=== PATIENT | female | born 1970 | race Caucasian/White ===

== ENCOUNTER 2020-04-20 18:25 | Emergency (ER) | payer OTHER ==
--- OUTSIDE RECORDS SUMMARY | 2020-04-20 18:26 | XMS REPORT | Continuity of Care Document ---
:1970 Author Organization [facility] t Address [address] [place] [address] Care Team Providers Name Role Phone StephanieTonyartemkayleigh CAMEJO Attending Clinician Problems This patient has no known problems. Allergies, Adverse Reactions, Alerts This patient has no known allergies or adverse reactions. Medications This patient has no known medications. Procedures This patient has no known procedures. Encounters Start End Encounter Admission Attending Care Care Encounter Source Date/Time Date/Time Type Type Clinicians Facility Department ID 2020-03-21 2020-03-21 [facility] [id number] 10:29:25 23:59:00 Encounter donato, SPECIALTY [id number] [facility] [id number] CENTER AT [phone] KINGA [address] [place] [address] 2020-02-28 2020-02-28 Office [facility] [id number] 08:51:28 10:53:25 Visit donato, SPECIALTY [id number] [facility] [id number] CENTER AT [phone] [address] Results This patient has no known results.
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
--- OUTSIDE RECORDS SUMMARY | 2020-04-20 18:27 | XMS REPORT | Summary of Care ---
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 distal end of right [facility] [place] tibia with nonunion, [address], [phone] subsequent encounter [address] (Primary Dx) [place] [address] [phone] Allergies Active Allergy Reactions Severity Noted Date Comments Hydrocodone-Acetaminophen Hives Medium 06/12/2017 documented as of this encounter (statuses as of 02/23/2020) Medications Medication Sig Dispensed Refills Start Date [...] as of this encounter (statuses as of 02/23/2020) Active Problems Problem Noted Date Morbid obesity [...] Added automatically from request for [place] [id number] documented as of this encounter (statuses as of 02/23/2020) Immunizations Name Administration Dates Next Due Td 06/12/2017 documented as of this encounter Social History Tobacco Use Types Packs/Day Years Used Date Never Smoker Smokeless Tobacco: Never Used Alcohol Use Drinks/Week oz/Week Comments No Sex Assigned at Date Recorded Not on file COVID-19 Exposure Response Date Recorded In the last month, have you been in contact with No / Unsure 02/22/2020 6:18 PM CDT someone who was confirmed or suspected to have Coronavirus / COVID-19? documented as of this encounter Last Filed Vital Signs Not on filedocumented in this encounter Plan of Treatment Date Type Specialty Care Team Description 02/23/2020 Office Visit Orthopedic Surgery Raj Clarke II, MD [address] [place], [place] [address] [phone] 02/28/2020 Office Visit Orthopedic Surgery CedrickJatinderTonyCurt hough, SOUND INSTALLATION WORKER [address] [place] [address] [phone] Name Type Priority Associated Diagnoses Order S chedule XR TIBIA FIBULA 2 VW IMAGING Routine Other type I or II o pen Expected: 02/23/2020, RIGHT fracture of distal end of Ex holly: 02/22/2021 right tibia with nonunion, subsequent encounter Health Maintenance Due Date Last Done Comments [...] of this encounter Implants Implanted Type Area Analytic Programmer Device Shelf Model / Identifier Expiration Serial / Date Lot Ivc Filter Kia Femoral Us Bard #[id number] - S0 FILTER N/A: Abdome n Bard 01/23/2020 [id number] / Implanted: Qty: 1 on 06/24/2017 by Luigi Velázquez Jr., MD at [facility] 0 / [id number] Nail Synthes 11mm Ti Blaine Retro/Antegrade Femoral-Ex/315mm # [id number] NAIL Right: Leg Synthes 09/11/2021 [id number] / Implanted: Qty: 1 on 06/13/2017 by Adria Sims MD at [facility] 0000 / [id number] Screw, Synthes 5.0mm Ti Lckng W/T25 Star 32mm #[id number] - S0000 SCREW Right: Leg Synthes 10/22/2025 [id number] / Implanted: Qty: 1 on 06/13/2017 by Adria Sims MD at [facility] 0000 / [id number] Screw, Synthes 5.0mm Ti Lckng W/T25 Star 34mm #[id number] - S0000 SCREW Right: Leg Synthes 12/22/2025 [id number] / Implanted: Qty: 1 on 06/13/2017 by Adria Sims MD at [facility] 0000 / [id number] Screw, Synthes 5.0mm Ti Lckng W/T25 Star 38mm Sterile #[id number] - S0000 SCREW Right: Leg Synthes 02/21/2026 04.005.528S / Implanted: Qty: 1 on 06/13/2017 by Adria Sims MD at [facility] 0000 / [id number] Screw, Synthes 5.0mm Ti Lckng W/T25 Star 42mm #[id number] - S0000 SCREW Right: Leg Synthes 06/24/2025 [id number] / Implanted: Qty: 1 on 06/13/2017 by Adria Sims MD at [facility] 0000 / [id number] documented as of this encounter Results Not on filedocumented in this encounter Visit Diagnoses Diagnosis Other type I or II open fracture of dist al end of right tibia with nonunion, subsequent encounter - Primary documented in this encounter Insurance Payer Benefit Plan / Subscriber ID Effective Dates Phone Addre ss Type Group U S DEPT OF [place] DEPT OF LABOR [id number] 2017-Present [facility] [employer] AETNA AETNA HMO [id number] 2017-Present HM O documented as of this encounter
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
--- OUTSIDE RECORDS SUMMARY | 2020-04-20 18:27 | XMS REPORT | Summary of Care ---
:1970 Author Organization [facility] Address [address] [place] [address] Care Team Providers Name Role Phone Shey Barbosa Primary Care Provider Reason for Visit Reason Comments Follow-up Right Leg Encounter Details Date Type Department Care Team Description 02/23/2020 Office Visit [facility] Adria Clarke MD Pain (Primary Dx) Orthopaedic Surgery- [address] [place] [address] Dr. Carvajal [address] [facility] [address], [address] [place] [address] [address] [place] [id number] Allergies Active Allergy Reactions Severity Noted Date Comments Hydrocodone-Acetaminophen Hives Medium 06/12/2017 documented as of this encounter (statuses as of 02/27/2020) Medications Medication Sig Dispensed Refills Start Date [...] as of this encounter (statuses as of 02/27/2020) Active Problems Problem Noted Date Morbid obesity [...] Overview: Added automatically from request for gray angulo [id number] documented as of this encounter (statuses as of 02/27/2020) Immunizations Name Administration Dates Next Due Td 06/12/2017 documented as of this encounter Social History Tobacco Use Types Packs/Day Years Used Date Never Smoker Smokeless Tobacco: Never Used Alcohol Use Drinks/Week oz/Week Comments No Sex Assigned at Date Recorded Not on file COVID-19 Exposure Response Date Recorded In the last month, have you been in contact with No / Unsure 02/27/2020 1:06 PM CDT someone who was confirmed or suspected to have Coronavirus / COVID-19? documented as of this encounter Last Filed Vital Signs Vital Sign Reading Time Taken Comments Blood Pressure - - Pulse - - Temperature 36.3 C (97.3 F) 02/23/2020 10:37 AM CDT Respiratory Rate - - Oxygen Saturation - - Inhaled Oxygen Concentration - - Weight 112.4 kg (247 lb 14.4 oz) 02/23/2020 10:37 AM CDT Height - - Body Mass Index 41.25 02/08/2020 11:17 AM CDT documented in this encounter Progress Notes Adria Clarke II, MD - 02[facility]23/2020 10:[facility] 02/24/2019 HPI 02/15/2018 S: Izzy Jose isdoing well. No pain in her leg today and only hurts a 2/10 when she walks far. She is having back pain from previous compression fracture, no radiation of pain or numbness/tingling to the arms or legs. No problems with bowel or bladder. HPI 05/27/2018 S: Izzy Jose is doing well back fully at work however reports aching pain at the lateral aspect of her leg at the end of the day. Interval history 02/24/2019 No significant changes. No problems. Patient wanted to see if bone is growing. Patient interested indiscussing progression, risk/benefits of surgery. Mild pain/irritation lateral lower right leg. Incision well healed, no signs of infection. Patient able to complete ADL's, no major barriers to daily life. Pain throughout day, no worse at end of day. Interval history 02/23/2020 No significant changes. No problems. Still has mild pain/irritation lateral lower right leg 06/03. Incision well healed Patient able to ambulate with no pain. Patient doesn't want any operative treatment at this time. Physical Exam: Gen: NAD RLE: incisions are c/d/i on the right leg. SILT sural/saphenous/tibial/sP/DP nerves, bilaterally, no clonus, 2+ PT/DP pulses. 5/5 EHL ankle plantar/dorsi flexion X rays show interval healing. Nail and screws in place A/P: Izzy Jose is a 50 year old female with s/p R Tibial IMN. Tibia shows improvement, healing since last visit. Weight Bearing: WBAT RLE Pain control: Tylenol PRN F/u in 2 years Disposition: Discussed possible screw removal/replacement options/risk/benefits. Patient is not interested in any operative treatment at this time. I performed a history and physical examination of the patient and discussed the patient's managementwith the resident. I reviewed the resident's note and agree with the documented findings and plan of care. Adria Clarke II, M.D. Pasteurizing Machine Operator Orthopaedic Trauma Blending Tank Tender Helper Orthopaedic Surgery Pager: 02/27/2020 7:09 PM Reina Richards MA - 02/23/2020 10:00 AM Didi Trice Jose is a 50 year old female comes to clinic independent in ambulation for follow up of right leg. Pt comes alone. No acute distress with pain reported 06/03. Pt preferred language is Luxembourger. Pt. denies fall in last 12 months. Allergies and medications were reviewed. documented in this encounter Plan of Treatment Date Type Specialty Care Team Description 02/28/2020 Office Visit Orthopedic Surgery Curt Kent, BASHIR [address] [place] [address] [phone] 03/08/2020 Appointment Radiology Curt Hahn FNP [address] [place] [address] [phone] Health Maintenance Due Date Last Done Comments [...] of this encounter Implants Implanted Type Area Dice Person Device Shelf Model / Identifier Expiration Serial / Date Lot Ivc Filter [place] Femoral Us Bard #[id number] - S0 FILTER N/A: Abdome n Bard 01/23/2020 [id number] / Implanted: Qty: 1 on 06/24/2017 by Luigi Velázquez Jr., MD at [facility] 0 / [id number] Nail Synthes 11mm Ti Blaine Retro/Antegrade Femoral-Ex/315mm # [id number] NAIL Right: Leg Synthes 09/11/2021 04.034.543S / Implanted: Qty: 1 on 06/13/2017 by Adria Sims MD at [facility] 0000 / [id number] Screw, Synthes 5.0mm Ti Lckng W/T25 Star 32mm #[id number] - S0000 SCREW Right: Leg Synthes 10/22/2025 04.005.522S / Implanted: Qty: 1 on 06/13/2017 by Adria Sims MD at [facility] 0000 / [id number] Screw, Synthes 5.0mm Ti Lckng W/T25 Star 34mm #[id number] - S0000 SCREW Right: Leg Synthes 12/22/2025 04.005.524 / Implanted: Qty: 1 on 06/13/2017 by Adria Sims MD at [facility] 0000 / [id number] Screw, Synthes 5.0mm Ti Lckng W/T25 Star 38mm Sterile #[id number] - S0000 SCREW Right: Leg Synthes 02/21/2026 04.005.528S / Implanted: Qty: 1 on 06/13/2017 by Adria Sims MD at [facility] 0000 / [id number] Screw, Synthes 5.0mm Ti Lckng W/T25 Star 42mm #[id number] - S0000 SCREW Right: Leg Synthes 06/24/2025 04.005.532S / Implanted: Qty: 1 on 06/13/2017 by Adria Sims MD at [facility] 0000 / [id number] documented as of this encounter Results Not on filedocumented in this encounter Visit Diagnoses Diagnosis Pain - Primary Generalized pain documented in this encounter Insurance Payer Benefit Plan / Subscriber ID Effective Dates Phone Addre ss Type Group U S DEPT OF [place] S DEPT OF LABOR [id number] 2017-Present I LABOR documented as of this encounter
--- OUTSIDE RECORDS SUMMARY | 2020-04-20 18:27 | XMS REPORT | Summary of Care ---
:1970 Author Organization [facility] [employer] Address [address] [place] [address] Care Team Providers Name Role Phone Shey Barbosa Primary Care Provider Reason for Referral Radiology Services (Routine) Status Reason Specialty Diagnoses / Referred By Referred To Procedures Contact Contact New Request Diagnostic Diagnoses Compression fracture of T12 vertebra with routine healing, subsequent encounter Postmenopausal bone loss [facility] Radiology Procedures DEXA AXIAL (HIP AND SPINE) on, Shibi, PRECISION MACHINING INSTRUCTOR [address] [place] [address] Radiology Services (Routine) Status Reason Specialty Diagnoses / Referred By Referred To Procedures Contact Contact New Request Diagnostic Diagnoses Compression fracture of T12 vertebra with routine healing, subsequent encounter Postmenopausal bone loss [facility] Radiology Procedures DEXA PERIPHERAL (FOREARM) on, Shibi, PRECISION MACHINING INSTRUCTOR [address] [place] [address] Reason for Visit Reason Comments Back Pain Encounter Details Date Type Department Care Team Description 02/08/2020 Office Visit [facility] Cedrick-Kunjumon Postmenopa usal bone loss (Primary Dx); Orthopaedic Surgery- , Shibi, FN P Compression fracture of T12 vertebra wit h routine healing, subsequent encounter Kathleen [address] [facility] [address] [address] [place], [place] [phone] [phone] Allergies Active Allergy Reactions Severity Noted Date [...] Added automatically from request for gray adele [id number] documented as of this encounter (statuses as [...] file Gets together: Not on file Attends uatsdin service: Not on file Active member of [...] Orthopedic Surgery Raj Clarke II, MD [address] [place] [address] 555 [phone] Name Type Priority Associated Diagnoses Order S [...] of this encounter Implants Implanted Type Area Occupational Health Nurse Supervisor Device Shelf Model / Identifier Expiration Serial / Date Lot Ivc Filter [place] Femoral Bard #[id number] - S0 FILTER N/A: Abdome n Bard 01/23/2020 [id number] / Implanted: Qty: 1 on 06/24/2017 by Luigi Velázquez Jr., MD at [facility] 0 / [id number] Nail Synthes 11mm Ti Blaine Retro/Antegrade Femoral-Ex/315mm # [id number] NAIL Right: Leg Synthes 09/11/2021 04.034.543S / Implanted: Qty: 1 on 06/13/2017 by Adria Sims MD at [facility] 0000 / [id number] Screw, Synthes 5.0mm Ti Lckng W/T25 Star 32mm #[id number] - S0000 SCREW Right: Leg Synthes 10/22/2025 04.005.522S / Implanted: Qty: 1 on 06/13/2017 by Adria Sims MD at [facility] 0000 / [id number] Screw, Synthes 5.0mm Ti Lckng W/T25 Star 34mm #04.005.524 - S0000 SCREW Right: Leg Synthes 12/22/2025 04.005.524 / Implanted: Qty: 1 on 06/13/2017 by Adria Sims MD at [facility] 0000 / [id number] Screw, Synthes 5.0mm Ti Lckng W/T25 Star 38mm Sterile #[id number] - S0000 SCREW Right: Leg Synthes 02/21/2026 04.005.528S / Implanted: Qty: 1 on 06/13/2017 by Adria Sims MD at [facility] 0000 / [id number] Screw, Synthes 5.0mm Ti Lckng W/T25 Star 42mm #[id number] - S0000 SCREW Right: Leg Synthes 06/24/2025 04.005.532S / Implanted: Qty: 1 on 06/13/2017 by Adria Sims MD at [facility] 0000 / [id number] documented as of this encounter Results Not on filedocumented in this encounter Visit Diagnoses Diagnosis Postmenopausal bone loss - Primary Senile osteoporosis Compression fracture of T12 vertebra wit h routine healing, subsequent encounter documented in this encounter Insurance Payer Benefit Plan / Subscriber ID Effective Dates Phone Addre ss Type Group U S DEPT OF [facility] DEPT OF LABOR [id number] 2017-Present I LABOR 2020 adnaomie Carnes (Home) [place] [phone] [facility] (Work) [place] [id number] documented as of this encounter
--- OUTSIDE RECORDS SUMMARY | 2020-04-20 18:28 | XMS REPORT | Summary of Care ---
:1970 Author Organization [facility] [employer] [facility] Address [address] [place] [address] Care Team Providers Name Role Phone Familia, Shey Primary Care Provider Encounter Details Date Type Department Care Team Description 02/28/2020 Hospital Encounter [facility] Ortho Radiolo gy Shibi, LITIGATION EXAMINER [address] [facility] [address] [facility] [address] [place], [place] [phone] [facility] [phone] Allergies Active Allergy Reactions Severity Noted Date Comments Hydrocodone-Acetaminophen Hives Medium 06/12/2017 documented as of this encounter (statuses as of 02/29/2020) Medications Medication Sig Dispensed Refills Start Date [...] as of this encounter (statuses as of 02/29/2020) Active Problems Problem Noted Date Morbid obesity [...] Added automatically from request for gray angulo [id number] documented as of this encounter (statuses as of 02/29/2020) Immunizations Name Administration Dates Next Due Td 06/12/2017 documented as of this encounter Social History Tobacco Use Types Packs/Day Years Used Date Never Smoker Smokeless Tobacco: Never Used Alcohol Use Drinks/Week oz/Week Comments No Sex Assigned at Date Recorded Not on file COVID-19 Exposure Response Date Recorded In the last month, have you been in contact with No / Unsure 02/28/2020 8:52 AM CDT someone who was confirmed or suspected to have Coronavirus / COVID-19? documented as of this encounter Last Filed Vital Signs Not on filedocumented in this encounter Plan of Treatment Date Type Specialty Care Team Description 03/08/2020 Appointment Radiology Curt Hahn FNP [address] [place] [address] [phone] Name Type Priority Associated Diagnoses Date/Ti me XR SPINE THORACIC 2 VW IMAGING Routine Compression fractu re of 02/28/2020 10:15 AM T12 vertebra with CDT routine healing, subsequent encounter Name Type Priority Associated Diagnoses Order S chedule XR SPINE THORACIC 2 IMAGING Routine Compression fracture of ONCE for 1 Occurrences VW T12 vertebra with starting 1 routine healing, until 02/27 subsequent encounter Health Maintenance Due Date Last Done Comments DTaP,Tdap,and Td Vaccines (1 - 01/02/1987 06/12/2017 Tdap) PAP SMEAR 01/02/1989 Breast Cancer Screening 2008 (MAMMOGRAM) COLON CANCER SCREENING ANNUAL 01/02/2018 FIT/FOBT COLON CANCER SCREENING FIT DNA 01/02/2018 EVERY 3 YEARS COLON CANCER SCREENING 01/02/2018 SIGMOIDOSCOPY EVERY 5 YEARS COLONOSCOPY 01/02/2018 Colorectal Cancer Screening 01/02/2018 Zoster Recombinant Vaccine 01/02/2018 (SHINGRIX) (1 of 2) INFLUENZA VACCINE (#1) 2020 Depression Screening 02/27/2021 02/28/2020 PNEUMOCOCCAL 0-64 YEARS COMBINED Aged Out No longer eligible based on SERIES patient's age to complete this topic documented as of this encounter Implants Implanted Type Area Clamshell Engineer Device Shelf Model / Identifier Expiration Serial / Date Lot Ivc Filter Harlan Femoral Us Bard #[id number] - S0 FILTER N/A: Abdome n Bard 01/23/2020 [id number] / Implanted: Qty: 1 on 06/24/2017 by Luigi Velázquez Jr., MD at [facility] 0 / [id number] Nail Synthes 11mm Ti Blaine Retro/Antegrade Femoral-Ex/315mm # [id number] NAIL Right: Leg Synthes 09/11/2021 04.034.543S / Implanted: Qty: 1 on 06/13/2017 by Adria Sims MD at [facility] 0000 / [id number] Screw, Synthes 5.0mm Ti Lckng W/T25 Star 32mm #[id number] - S0000 SCREW Right: Leg Synthes 10/22/2025 04.005.522S / Implanted: Qty: 1 on 06/13/2017 by Adria Sims MD at [facility] 0000 / [id number] Screw, Synthes 5.0mm Ti Lckng W/T25 Star 34mm #[id number] - S0000 SCREW Right: Leg Synthes 12/22/2025 04.005.524 / Implanted: Qty: 1 on 06/13/2017 by Adria Sims MD at [facility] 0000 / [id number] Screw, Synthes 5.0mm Ti Lckng W/T25 Star 38mm Sterile #[id number] - S0000 SCREW Right: Leg Synthes 02/21/2026 04.005.528S / Implanted: Qty: 1 on 06/13/2017 by Adria Sims MD at [facility] 0000 / [id number] Screw, Synthes 5.0mm Ti Lckng W/T25 Star 42mm #[id number] - S0000 SCREW Right: Leg Synthes 06/24/2025 04.005.532S / Implanted: Qty: 1 on 06/13/2017 by Adria Sims MD at [facility] 0000 / [id number] documented as of this encounter Results Not on filedocumented in this encounter Visit Diagnoses Diagnosis Compression fracture of T12 vertebra wit h routine healing, subsequent encounter documented in this encounter (Work) documented as of this encounter
--- OUTSIDE RECORDS SUMMARY | 2020-04-20 18:28 | XMS REPORT | Summary of Care ---
:1970 Author Organization [facility] [employer] Address [address] [place] [address] Care Team Providers Name Role Phone Shey Barbosa Primary Care Provider Reason for Visit Reason Comments Follow-up Right Leg Encounter Details Date Type Department Care Team Description 02/23/2020 Office Visit [facility] Adria Clarke MD Pain (Primary Dx) Orthopaedic Surgery- [address] [place] [address] Dr. Carvajal [address], [address] [place] [address] [address] [place] [id number] Allergies Active Allergy Reactions Severity Noted Date [...] Added automatically from request for gray angulo [id number] documented as of this encounter (statuses as [...] Clarke II, MD - [facility] 02/24/2019 HPI 02/15/2018 [...] plan of care. Adria Clarke II, M.D. Route Driver Salesperson Orthopaedic Trauma Save All Operator Orthopaedic Surgery Pager: 02/27/2020 7:09 PM Reina Richards MA - 02/23/2020 10:00 AM Didi Trice Jose is a 50 year old female comes to clinic independent in ambulation for follow up of right leg. Pt comes alone. No acute distress with pain reported 06/03. Pt preferred language is [place]. Pt. denies fall in last 12 months. Allergies and medications were reviewed. documented in this encounter Plan of Treatment Date Type Specialty Care Team Description 02/28/2020 Office Visit Orthopedic Surgery Curt Kent, BASHIR [address] [place] [address] [phone] 03/08/2020 Appointment Radiology Curt Hahn FNP [address] [place] [address] [phone] Health Maintenance Due Date Last Done Comments [...] of this encounter Implants Implanted Type Area Try Out Person Device Shelf Model / Identifier Expiration Serial / Date Lot Ivc Filter Schley Femoral Us Bard #[id number] - S0 FILTER N/A: Abdome n Bard 01/23/2020 [id number] / Implanted: Qty: 1 on 06/24/2017 by Luigi Velázquez Jr., MD at [facility] 0 / [id number] Nail Synthes 11mm Ti Blaine Retro/Antegrade Femoral-Ex/315mm # [id number] NAIL Right: Leg Synthes 09/11/2021 04.034.543S / Implanted: Qty: 1 on 06/13/2017 by Adria Sims MD at [facility] 0000 / [id number] Screw, Synthes 5.0mm Ti Lckng W/T25 Star 32mm #[id number] - S0000 SCREW Right: Leg Synthes 10/22/2025 04.005.522S / Implanted: Qty: 1 on 06/13/2017 by Adria Sims MD at [facility] 0000 / [id number] Screw, Synthes 5.0mm Ti Lckng W/T25 Star 34mm #04.005.524 - S0000 SCREW Right: Leg Synthes 12/22/2025 04.005.524 / Implanted: Qty: 1 on 06/13/2017 by Adria Sims MD at [facility] 0000 / [id number] Screw, Synthes 5.0mm Ti Lckng W/T25 Star 38mm Sterile #[id number] - S0000 SCREW Right: Leg Synthes 02/21/2026 04.005.528S / Implanted: Qty: 1 on 06/13/2017 by Adria Sims MD at [facility] 0000 / [id number] Screw, Synthes 5.0mm Ti Lckng W/T25 Star 42mm #[id number] - S0000 SCREW Right: Leg Synthes 06/24/2025 04.005.532S / Implanted: Qty: 1 on 06/13/2017 by Adria Sims MD at [facility] 0000 / [id number] documented as of this encounter Results Not on filedocumented in this encounter Visit Diagnoses Diagnosis Pain - Primary Generalized pain documented in this encounter Insurance Payer Benefit Plan / Subscriber ID Effective Dates Phone Addre ss Type Group U S DEPT OF U S DEPT OF LABOR [id number] 2017-Present I LABOR documented as of this encounter
--- OUTSIDE RECORDS SUMMARY | 2020-04-20 18:28 | XMS REPORT | Summary of Care ---
:1970 Author Organization [facility] [employer] Address [address] [place] [address] Care Team Providers Name Role Phone Familia Shey Primary Care Provider Reason for Visit Reason Comments Follow-up spine/nerve pain Encounter Details Date Type Department Care Team Description 02/28/2020 Office Visit [facility] Eri Rebollar on fracture Orthopaedic Surgery- Curt, INDUSTRIAL ACCOUNTANT of T12 vertebra with [facility] [address] [facility] routine healing, [address] [facility] subsequent encounter [place], [place] (Primary Dx) [place] [address] [phone] Allergies Active Allergy Reactions Severity Noted Date Comments Hydrocodone-Acetaminophen Hives Medium 06/12/2017 documented as of this encounter (statuses as of 03/01/2020) Medications Medication Sig Dispensed Refills Start Date [...] 0 03/25/2018 Active tablet mouth at bedtime. Hospital, Clinic, or Other Ordered Dose Route Frequency Start Date End Date Status Facility Administered Medication triamcinolone acetonide 40 mg IM ONCE 02/28/202002/27 Ended (KENALOG) injection 40 mg documented as of this encounter (statuses as of 03/01/2020) Active Problems Problem Noted Date Morbid obesity [...] Added automatically from request for gray adele [id number] documented as of this encounter (statuses as of 03/01/2020) Immunizations Name Administration Dates Next Due Td [...] Sign Reading Time Taken Comments Blood Pressure 131/85 02/28/2020 8:56 AM CDT Pulse 60 02/28/2020 8:56 AM CDT Temperature 35.6 C (96 F) 02/28/2020 8:56 AM CDT Respiratory Rate - - Oxygen Saturation - - Inhaled Oxygen Concentration - - Weight 114 kg (251 lb 6.4 oz) 02/28/2020 8:56 AM CDT Height - - Body Mass Index 41.84 02/08/2020 11:17 AM CDT documented in this encounter Progress Notes [facility]-Curt Meeks, BASHIR - 02/28/2020 9:00 AM CDT Initial Visit: Pt is here [...] female for the follow up with the [facility] -mid back pain due to closed T10 and T12 compression fracture.She denies mid back pain and her fibular fracture has healed well.She is back to work and does limited picking up weights.Denies radiating pain has good ROM. Interval Hx 02/28/2020 :Izzy Jose is a 50 year old female for the follow up with the mid back pain,few days ago she picked a pack water bottle since then she has mid-back pain,she is here with mild back pain,worried that she may have an another compression fracture.Her pain is 4/10 deniesradiating and mild tender to touch in the mid thoracic region. Past Medical History: Diagnosis Date HTN (hypertension) Hypothyroidism Current Outpatient Medications Medication Sig Dispense Refill atorvastatin 20 mg tablet Take 20 mg by mouth at bedtime. calcium carbonate/vitamin D3 (CALCIUM 600 WITH VITAMIN D3 ORAL) cetirizine 10 mg tablet escitalopram oxalate 10 mg tablet acetaminophen 325 mg tablet Take 2 tablets by mouth every 6 (six) hours as needed (headache). levothyroxine 150 mcg tablet Take 125 mcg by mouth every morning. lisinopril 10 mg tablet Take 20 mg by mouth daily. No current facility-administered medications for this visit. [...] file Gets together: Not on file Attends jainism service: Not on file Active member of [...] costal margin : No costovertebral angle tenderness Musculoskeletal:TTP mid thoracic Integument:Well hydrated, no rash, cyanosis or jaundice Lymphatic:No pathologic lymphadenopathy noted Neurologic:Alert &oriented x 3, CN 2-12 grossly normal, no motor or sensory function deficits, no focal deficits noted Psychiatric: Speech and behavior appropriate T spine X-ray 02/28/2020: Focal kyphosis in the lower thoracic spine with chronic mild anterior wedging at T10 and moderate anterior wedging at T12 is unchanged. The thoracic vertebral bodies are otherwise normal in height and in normal alignment. No more than mild degenerative changes are present. Assessment:Postmenopausal bone loss (primary encounter diagnosis) Mid [...] since she is postmenopausal women with compression fracture and follow up after DEXA. Procedure: A trigger point injection was performed at the site of maximal tenderness at mid thoracic using 1% plain Lidocaine 1cc and Kenalog 40mg. This was well tolerated, and followed by ice for the relief of pain. Curt CAMEJO(Bone Health) documented in this encounter Plan of Treatment Date Type Specialty Care Team Description 03/08/2020 Appointment Radiology Curt Hahn FNP [address] [place], [place] 586173 Health Maintenance Due Date Last Done Comments [...] of this encounter Implants Implanted Type Area Analytical Consultant Device Shelf Model / Identifier Expiration Serial / Date Lot Ivc Filter Kia Femoral Us Bard #[id number] - S0 FILTER N/A: Abdome n Bard 01/23/2020 [id number] / Implanted: Qty: 1 on 06/24/2017 by Luigi Velázquez Jr., MD at [facility] 0 / [id number] Nail Synthes 11mm Ti Blaine Retro/Antegrade Femoral-Ex/315mm # [id number] NAIL Right: Leg Synthes 09/11/2021 04.034.543S / Implanted: Qty: 1 on 06/13/2017 by Adria Sims MD at [facility] 0000 / [id number] Screw, Synthes 5.0mm Ti Lckng W/T25 Star 32mm #[id number] - S0000 SCREW Right: Leg Synthes 10/22/2025 04.005.522S / Implanted: Qty: 1 on 06/13/2017 by Adria Sims MD at [facility] 0000 / [id number] Screw, Synthes 5.0mm Ti Lckng W/T25 Star 34mm #04.005.524 - S0000 SCREW Right: Leg Synthes 12/22/2025 04.005.524 / Implanted: Qty: 1 on 06/13/2017 by Adria Sims MD at [facility] 0000 / [id number] Screw, Synthes 5.0mm Ti Lckng W/T25 Star 38mm Sterile #[id number] - S0000 SCREW Right: Leg Synthes 02/21/2026 04.005.528S / Implanted: Qty: 1 on 06/13/2017 by Adria Sims MD at [facility] 0000 / [id number] Screw, Synthes 5.0mm Ti Lckng W/T25 Star 42mm #[id number] - S0000 SCREW Right: Leg Synthes 06/24/2025 04.005.532S / Implanted: Qty: 1 on 06/13/2017 by Adria Sims MD at [facility] 0000 / [id number] documented as of this encounter Results XR SPINE THORACIC 2 VW (02/28/2020 10:15 AM CDT) Specimen Narrative Performed At XR SPINE THORACIC 2 VW PACS/VR/DOSE HISTORY: Female 50 years mid back pain COMPARISON: Thoracic radiograph dated 04/2018 FINDINGS: Focal kyphosis in the lower thoracic spi ne with chronic mild anterior wedging at T10 and moderate anterior wed ging at T12 is unchanged. The thoracic vertebral bodies are otherwise normal in height and in normal alignment. No more than mild degenerative changes are present. Procedure Note [facility], Radiant Results Inft User - 2019 12:19 AM CDT XR SPINE THORACIC 2 VW HISTORY: Female 50 years mid back pain COMPARISON: Thoracic radiograph dated 04/2018 FINDINGS: Focal kyphosis in the lower thoracic spi ne with chronic mild anterior wedging at T10 and moderate anterior wed ging at T12 is unchanged. The thoracic vertebral bodies are otherw ise normal in height and in normal alignment. No more than mild degenerative changes a re present. Performing Organization Address City/State/Zipcode Phone Number PACS/VR/DOSE documented in this encounter Visit Diagnoses Diagnosis Compression fracture of T12 vertebra wit h routine healing, subsequent encounter - Primary documented in this encounter Administered Medications Medication Order MAR Action Action Date Dose Rate Site triamcinolone acetonide Given 02/28/2020 11:00 40 mg Tender point(s) - (KENALOG) injection 40 mg AM CDT see comments 40 mg, Intramuscular, ONCE, 1 dose, 02/28/20 at 1100, Routine documented in this encounter Insurance Payer Benefit Plan / Subscriber ID Effective Dates Phone Addre ss Type Group U S DEPT OF U S DEPT OF LABOR [id number] 2017-Present I LABOR documented as of this encounter
--- OUTSIDE RECORDS SUMMARY | 2020-04-20 18:28 | XMS REPORT | Summary of Care ---
:1970 Author Organization [facility] [employer] Address [address] [place] [address] Care Team Providers Name Role Phone Familia Shey Primary Care Provider Reason for Visit Reason Comments Follow-up spine/nerve pain Encounter Details Date Type Department Care Team Description 02/28/2020 [facility] Visit [facility] Eri Rebollar on fracture Orthopaedic Surgery- Curt, DIRECTOR RECORDS MANAGEMENT of T12 vertebra with [facility] [address] [facility] routine healing, [address] [facility] subsequent encounter [place], [place] (Primary Dx) [place] [address] [phone] Allergies Active Allergy Reactions Severity Noted Date [...] Added automatically from request for gray adele [id number] documented as of this encounter (statuses as [...] file Gets together: Not on file Attends faith service: Not on file Active member of [...] 03/08/2020 Appointment Radiology Curt Hahn FNP [address] [place], [place] [id number] Health Maintenance Due Date Last Done Comments [...] of this encounter Implants Implanted Type Area Electro Mechanical Solar Technician Device Shelf Model / Identifier Expiration Serial / Date Lot Ivc Filter Kia Femoral Us Bard #[id number] - S0 FILTER N/A: Abdome n Bard 01/23/2020 [id number] / Implanted: Qty: 1 on 06/24/2017 by Luigi Velázquez Jr., MD at [facility] 0 / [id number] Nail Synthes 11mm Ti Blaine Retro/Antegrade Femoral-Ex/315mm # 04.013.543s NAIL Right: Leg Synthes 09/11/2021 04.034.543S / Implanted: Qty: 1 on 06/13/2017 by Adria Sims MD at [facility] 0000 / [id number] Screw, Synthes 5.0mm Ti Lckng W/T25 Star 32mm #[id number] - S0000 SCREW Right: Leg Synthes 10/22/2025 04.005.522S / Implanted: Qty: 1 on 06/13/2017 by Adria Sims MD at [facility] 0000 / [id number] Screw, Synthes 5.0mm Ti Lckng W/T25 Star 34mm #04.005.524 - S0000 SCREW Right: Leg Synthes 12/22/2025 04.005.524 / Implanted: Qty: 1 on 06/13/2017 by Adria Sims MD at [facility] 0000 / [id number] Screw, Synthes 5.0mm Ti Lckng W/T25 Star 38mm Sterile #04.005.528s - S0000 SCREW Right: Leg Synthes 02/21/2026 04.005.528S / Implanted: Qty: 1 on 06/13/2017 by Adria Sims MD at [facility] 0000 / [id number] Screw, Synthes 5.0mm Ti Lckng W/T25 Star 42mm #[id number] - S0000 SCREW Right: Leg Synthes 06/24/2025 04.005.532S / Implanted: Qty: 1 on 06/13/2017 by Adrai Sims MD at [facility] 0000 / [id number] documented as of this encounter Results XR [...] DEPT OF U S DEPT OF LABOR [id number] 2017-Present I LABOR documented as of this encounter
--- OUTSIDE RECORDS SUMMARY | 2020-04-20 18:29 | XMS REPORT | Summary of Care ---
:1970 Author Organization [facility] [place] [employer] [facility] Address [address] [place] [id number] Care Team Providers Name Role Phone Shey Barbosa Primary Care Provider Reason for Referral Radiology Services (Routine) Status Reason Specialty Diagnoses / Referred By Referred To Procedures Contact Contact New Request Diagnostic Diagnoses Compression fracture of T12 vertebra with routine healing, subsequent encounter Postmenopausal bone loss [facility] Procedures DEXA AXIAL (HIP AND SPINE) on, Shibi, PIGMENT PROCESSOR [address] [place] [address] Radiology Services (Routine) Status Reason Specialty Diagnoses / Referred By Referred To Procedures Contact Contact Closed Diagnostic Diagnoses Compression fracture of T12 vertebra with routine healing, subsequent encounter Postmenopausal bone loss [facility] Procedures DEXA PERIPHERAL (FOREARM) , Shibi, PIGMENT PROCESSOR [address] [place] [address] Reason for Visit Radiology Services (Routine) Status Reason Specialty Diagnoses / Referred By Referred To Procedures Contact Contact Closed Diagnostic Diagnoses Compression fracture of T12 vertebra with routine healing, subsequent encounter Postmenopausal bone loss [facility] Procedures DEXA PERIPHERAL (FOREARM) , Shibi, PIGMENT PROCESSOR [address] [place] [address] Encounter Details Date Type Department Care Team Description 03/21/2020 Hospital Encounter [facility] CedrickToni sewell, Arrived [place] [facility]agana donato Curt, PIGMENT PROCESSOR [address] [facility] [address] [facility] [id number] [place], [place] [phone] Allergies Active Allergy Reactions Severity Noted Date Comments Hydrocodone-Acetaminophen Hives Medium 06/12/2017 documented as of this encounter (statuses as of 03/22/2020) Medications Medication Sig Dispensed Refills Start Date [...] as of this encounter (statuses as of 03/22/2020) Active Problems Problem Noted Date Morbid obesity [...] Added automatically from request for gray angulo [id number] documented as of this encounter (statuses as of 03/22/2020) Immunizations Name Administration Dates Next Due Td 06/12/2017 documented as of this encounter Social History Tobacco Use Types Packs/Day Years Used Date Never Smoker Smokeless Tobacco: Never Used Alcohol Use Drinks/Week oz/Week Comments No Sex Assigned at Date Recorded Not on file COVID-19 Exposure Response Date Recorded In the last month, have you been in contact with No / Unsure 03/21/2020 10:28 AM CDT someone who was confirmed or suspected to have Coronavirus / COVID-19? documented as of this encounter Last Filed Vital Signs Not on filedocumented in this encounter Plan of Treatment Health Maintenance Due Date Last Done Comments [...] of this encounter Implants Implanted Type Area Slide Fastener Repairer Device Shelf Model / Identifier Expiration Serial / Date Lot Ivc Filter Clarion Femoral Us Bard #[id number] - S0 FILTER N/A: Abdome n Bard 01/23/2020 [id number] / Implanted: Qty: 1 on 06/24/2017 by Luigi Velázquez Jr., MD at [facility] 0 / [id number] Nail Synthes 11mm Ti [place] Retro/Antegrade Femoral-Ex/315mm # [id number] NAIL Right: Leg Synthes 09/11/2021 [id number] / Implanted: Qty: 1 on 06/13/2017 by Adria Sims MD at [facility] 0000 / [id number] Screw, Synthes 5.0mm Ti Lckng W/T25 Star 32mm #[id number] - [id number] SCREW Right: Leg Synthes 10/22/2025 [id number] / Implanted: Qty: 1 on 06/13/2017 by Adria Sims MD at [facility] 0000 / [id number] Screw, Synthes 5.0mm Ti Lckng W/T25 Star 34mm #[id number] - S0000 SCREW Right: Leg Synthes 12/22/2025 [id number] / Implanted: Qty: 1 on 06/13/2017 by Adria Sims MD at [facility] 0000 / [id number] Screw, Synthes 5.0mm Ti Lckng W/T25 Star 38mm Sterile #[id number] - S0000 SCREW Right: Leg Synthes 02/21/2026 [id number] / Implanted: Qty: 1 on 06/13/2017 by Adria Sims MD at [facility] 0000 / [id number] Screw, Synthes 5.0mm Ti Lckng W/T25 Star 42mm #[id number] - S0000 SCREW Right: Leg Synthes 06/24/2025 [id number] / Implanted: Qty: 1 on 06/13/2017 by Adria Sims MD at [facility] 0000 / [id number] documented as of this encounter Procedures Procedure Name Priority Date/Time Associated Diagnosis Comme nts DEXA AXIAL (HIP AND Routine 03/21/2020 11:05 Compression fract ure Results for this SPINE) AM CDT of T12 vertebra with procedu re are in routine healing, the results subsequent encou nter section. Postmenopausal bone loss DEXA PERIPHERAL Routine 03/21/2020 11:05 Compression fracture Results for this (FOREARM) AM CDT of T12 vertebra with procedu re are in routine healing, the results subsequent encou nter section. Postmenopausal bone loss documented in this encounter Results DEXA AXIAL (HIP AND SPINE) (03/21/2020 11:05 AM CDT) Specimen Impressions Performed At PACS/VR/DOSE Osteopenia Preliminary Report Dictated by Resident: Avery Lopez MD., have reviewed this study and agree with the above report. Narrative Performed At EXAM: DEXA AXIAL (HIP AND SPINE), DEXA P ERIPHERAL (FOREARM) PACS/VR/DOSE HISTORY: 50-year-old female presents for screening COMPARISON: None, this is the patient' s baseline examination TECHNIQUE: Bone densitometry of the lumb ar spine bilateral hips and bilateral forearms were performed on a [employer] (mytaxi). WHO-definitions T score normal T >/= - 1 SD around the mean osteopenia -1 > T > -2.5 S D below the mean osteoporosis T >/= -2.5 SD below the mean Fracture risk doubles for each 1.5 SD below the mean. ---- FINDINGS: 1. Lumbar spine L1-L4: T value -1.7. B one mineral density of 0.975 g/cm^2. 2. Right Hip: T value -0.1. Bone sock examiner al density of 0.991 g/cm^2. Right Neck: T value -1.3. Bone mineral density of 0.828 g/cm^2. 3. Left Hip: T value 0.5. Bone mineral density of 1.058 g/cm^2. Left Neck: T value -1.0. Bone mineral density of 0.866 g/cm^2. 4. Right Forearm (33% Radius): T value 0.0. Bone min eral density of 0.873 g/cm^2. 5. Left Forearm (33% Radius): T value 0.2. Bone mine ral density of 0.891 g/cm^2. Procedure Note [facility], Radiant Results Inft User - 2019 3:16 PM CDT EXAM: DEXA AXIAL (HIP AND SPINE), DEXA PERIPHERAL (FOREARM) HISTORY: 50-year-old female presents for screening COMPARISON: None, this is the patient's baseline examination TECHNIQUE: Bone densitometry of the lumb ar spine bilateral hips and bilateral forearms were performed on a [employer] system. ---- WHO-definitions T score normal T >/= - 1 SD arou nd the mean osteopenia -1 > T > -2.5 SD bel ow the mean osteoporosis T >/= -2.5 SD below t he mean Fracture risk doubles for each 1.5 SD be low the mean. ---- FINDINGS: 1. Lumbar spine L1-L4: T value -1.7. Naman ne mineral density of 0.975 g/cm^2. 2. Right Hip: T value -0.1. Bone minera l density of 0.991 g/cm^2. Right Neck: T value -1.3. Bone mineral density of 0.828 g/cm^2. 3. Left Hip: T value 0.5. Bone mineral density of 1.058 g/cm^2. Left Neck: T value -1.0. Bone mineral d ensity of 0.866 g/cm^2. 4. Right Forearm (33% Radius): T value 0 .0. Bone mineral density of 0.873 g/cm^2. 5. Left Forearm (33% Radius): T value 0. 2. Bone mineral density of 0.891 g/cm^2. IMPRESSION Osteopenia Preliminary Report Dictated by Resident: Avery Lopez MD., have r eviewed this study and agree with the above report. Performing Organization Address City/State/Zipcode Phone Number PACS/VR/DOSE DEXA PERIPHERAL (FOREARM) (03/21/2020 11:05 AM CDT) Specimen Impressions Performed At [facility]/VR/DOSE Osteopenia Preliminary Report Dictated by Resident: Avery Lopez MD., have reviewed this study and agree with the above report. Narrative Performed At EXAM: DEXA AXIAL (HIP AND SPINE), DEXA P ERIPHERAL (FOREARM) PACS/VR/DOSE HISTORY: 50-year-old female presents for screening COMPARISON: None, this is the patient' s baseline examination TECHNIQUE: Bone densitometry of the lumb ar spine bilateral hips and bilateral forearms were performed on a [employer] (mytaxi). WHO-definitions T score normal T >/= - 1 SD around the mean osteopenia -1 > T > -2.5 S D below the mean osteoporosis T >/= -2.5 SD below the mean Fracture risk doubles for each 1.5 SD below the mean. ---- FINDINGS: 1. Lumbar spine L1-L4: T value -1.7. B one mineral density of 0.975 g/cm^2. 2. Right Hip: T value -0.1. Bone sock examiner al density of 0.991 g/cm^2. Right Neck: T value -1.3. Bone mineral density of 0.828 g/cm^2. 3. Left Hip: T value 0.5. Bone mineral density of 1.058 g/cm^2. Left Neck: T value -1.0. Bone mineral density of 0.866 g/cm^2. 4. Right Forearm (33% Radius): T value 0.0. Bone min eral density of 0.873 g/cm^2. 5. Left Forearm (33% Radius): T value 0.2. Bone mine ral density of 0.891 g/cm^2. Procedure Note [facility], Radiant Results Inft User - 2019 3:16 PM CDT EXAM: DEXA AXIAL (HIP AND SPINE), DEXA PERIPHERAL (FOREARM) HISTORY: 50-year-old female presents for screening COMPARISON: None, this is the patient's baseline examination TECHNIQUE: Bone densitometry of the lumb ar spine bilateral hips and bilateral forearms were performed on a [employer] system. ---- WHO-definitions T score normal T >/= - 1 SD arou nd the mean osteopenia -1 > T > -2.5 SD bel ow the mean osteoporosis T >/= -2.5 SD below t he mean Fracture risk doubles for each 1.5 SD be low the mean. ---- FINDINGS: 1. Lumbar spine L1-L4: T value -1.7. Naman ne mineral density of 0.975 g/cm^2. 2. Right Hip: T value -0.1. Bone minera l density of 0.991 g/cm^2. Right Neck: T value -1.3. Bone mineral density of 0.828 g/cm^2. 3. Left Hip: T value 0.5. Bone mineral density of 1.058 g/cm^2. Left Neck: T value -1.0. Bone mineral d ensity of 0.866 g/cm^2. 4. Right Forearm (33% Radius): T value 0 .0. Bone mineral density of 0.873 g/cm^2. 5. Left Forearm (33% Radius): T value 0. 2. Bone mineral density of 0.891 g/cm^2. IMPRESSION Osteopenia Preliminary Report Dictated by Resident: Sara Mcclelland I, Avery Vaughan MD., have r eviewed this study and agree with the above report. Performing Organization Address City/State/Zipcode Phone Number PACS/VR/DOSE documented in this encounter Visit Diagnoses Diagnosis Compression fracture of T12 vertebra wit h routine healing, subsequent encounter Postmenopausal bone loss Senile osteoporosis documented in this encounter (Work) documented as of this encounter
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
[2020-04-20] MEDS ORDERED: CEPHALEXIN 250 MG CAP ONE (19:33)
[2020-04-20] MEDS ORDERED: SMZ./TMP. 800/160 MG TABLET ONE (19:33)
[2020-04-20 22:38] VITALS: BP 139/81; TEMP 98.9; O2SAT 98
== END 2020-04-20 19:29 | disposition home or self-care (01) ==
LOC: ER 18:25
DX: L03.113 Cellulitis of right upper limb (principal); I10 Essential (primary) hypertension; Z88.5 Allergy status to narcotic agent
CPT/HCPCS: 99283